=== PATIENT | male | born 1945 | race Caucasian/White ===

== ENCOUNTER 2017-12-20 07:16 | Outpatient (CLI) | payer MEDICARE, OTHER | END 2017-12-20 07:17 | disposition home or self-care (01) | LOC: BICULT 07:16 | PROVIDERS: ATTEND Family Medicine | DX: Z13.6 Encounter for screening for cardiovascular disorders (principal); Z00.00 Encounter for general adult medical examination without abnormal findings | CPT/HCPCS: 76775 ==

== ENCOUNTER 2018-01-08 10:24 | Outpatient (CLI) | payer MEDICARE, OTHER | END 2018-01-08 10:25 | disposition home or self-care (01) | LOC: BICRAD 10:24 | PROVIDERS: ATTEND Family Medicine | DX: M79.645 Pain in left finger(s) (principal); M19.032 Primary osteoarthritis, left wrist ==

== ENCOUNTER 2018-03-18 21:43 | Inpatient (IN) | payer MEDICARE, OTHER ==
[~2018-03-18 21:43] MED LIST: ISOVUE-370 76%-LOCM 1 ML ONE
[2018-03-18 23:25] LABS: #Basophils 0.1 thou/uL (0.0-0.2); #Eosinphils 0.3 thou/uL (0.0-0.7); #Lymphocytes 2.4 thou/uL (1.20-3.40); #Neutrophils 3.1 thou/uL (1.40-6.50); %Eosinophils 4.6 % (0.0-10.0); %Lymphocytes 35.2 % (21.0-51.0); %Monocytes 14.5 % (0.0-10.0); %Neutrophils 44.7 % (42.0-75.0); Hemoglobin 13.2 g/dL (14.0-18.0); Mean Corpuscular HGB CONC 34.5 g/dL (32.0-36.0); Mean Corpuscular Hemoglobin 26.6 pg (27.0-31.0); Mean Corpuscular Volume 77.2 fL (78.0-98.0); Mean Platelet Volume 6.9 fL (7.4-10.4); Platelet Count 199 thou/uL (130-400); RBC Distribution Width 14.7 % (11.5-14.5); Red Blood Cell (RBC) Count 4.94 mill/uL (4.70-6.10); White Blood Cell (WBC) Count 6.9 thou/uL (4.8-10.8)
[2018-03-18 23:42] LABS: Bilirubin Negative (Negative); Blood, Urine Negative (Negative); Clarity CLEAR (Clear); Glucose, Urine (Dipstick) Negative (Negative); Leukocyte Negative (Negative); Nitrite Negative (Negative); Protein, Urine (Dipstick) Negative (Neg-Trace); Specific Gravity, Urine 1.004 (1.002-1.036); Urobilinogen 0.2 mg/dL (0.2-1.0); pH, Urine 6.5 (5.0-9.0)
[2018-03-18 23:51] LABS: CKMB 6.4 ng/mL (0-6.6); Troponin I Less than 0.010 ng/mL (< 0.028)
--- NOTE | 2018-03-18 23:52 | RAD ---
CHEST ONE VIEW: 03/18/18 HISTORY: Altered mental status. Chest pain. COMPARISON: Chest radiograph 2010. FINDINGS: Heart size is mildly enlarged. Mild dilatation of the pulmonary arteries. Multiple midline median kemi rnotomy wires. Scarring of both lung bases as well as lung apices. IMPRESSION: Chronic changes. No acute intrathoracic abnormality. POS: [facility]
[2018-03-18 23:55] LABS: ALT (SGPT) 18 U/L (8-55); AST (SGOT) 20 U/L (5-34); Albumin 4.1 g/dL (3.4-4.8); Alkaline Phosphatase 42 U/L (40-150); Anion Gap 11 mmol/L (10-20); BUN (Urea Nitrogen) 18 mg/dL (8.4-25.7); Bilirubin, Total 0.6 mg/dL (0.2-1.2); CK (CPK) 118 U/L (30-200); Calc. Creatinine Clearance 0 mL/min (70-130); Calcium 9.6 mg/dL (7.8-10.44); Carbon Dioxide 27 mmol/L (23-31); Chloride 100 mmol/L (98-107); Estimated GFR-MDRD 67; Globulin 2.5 g/dL (2.4-3.5); Glucose 85 mg/dL (83-110); Lipase 31 U/L (8-78); Potassium 4.1 mmol/L (3.5-5.1); Protein, Total 6.6 g/dL (5.8-8.1); Sodium 134 mmol/L (136-145)
--- NOTE | 2018-03-19 00:13 | CT ---
CT BRAIN WITHOUT CONTRAST: 03/18/18 HISTORY: Stroke activation. Right side numbness started one hour prior to arrival. COMPARISON: CT brain 08/29/13. FINDINGS: No acute territorial infarct or hemorrhage. No midline shift or mass effect. Calcifications of the fa lx and tentorium. Globes are normal. IMPRESSION: No acute intracranial abnormality. Code CR POS: [facility]
[2018-03-19 01:33] LABS: Free T4 (Free Thyroxine) 1.36 ng/dL (0.70-1.48)
[2018-03-19 03:12] VITALS: BMI 32.1
--- NOTE | 2018-03-19 07:05 | CT ---
CT ANGIOGRAM HEAD WITH CONTRAST WITH CT ANGIOGRAM PERFUSION: COMPARISON: CT brain from the same day. TECHNIQUE: CT angiogram of the head and neck were performed with the intravenous administration of contrast, wit h 3D rendering provided. Perfusion was performed. FINDINGS: The lung apices are clear. There appear to be multiple surgical clips along the neck. Cervical spine alignment is normal. Left vertebral artery is dominant. The origins of both vertebral arteries are patent. There is appr oximately 30% narrowing of the proximal left vertebral artery. The proximal right vertebral artery o rigin also has approximately 30% narrowing. Bilateral common carotid arteries are patent. Internal carotid arteries are patent. The [place] is patent. Mean transit time, cerebral blood flow, and cerebral blood volume are all normal. IMPRESSION: 1. Less than 50% narrowing of the proximal origins of the vertebral arteries. 2. No evidence for altered intracranial perfusion. CODE CR (DR. ABBOTT) POS: [facility]
[2018-03-19] MEDS ORDERED: Aspirin 325 MG TAB PO SCH (09:00)
--- NOTE | 2018-03-19 10:19 | ULT ---
BILATERAL CAROTID DUPLEX ULTRASOUND: HISTORY: CVA. TECHNIQUE: Proctor-scale ultrasound with color-flow and spectral Doppler imaging of the extracranial carotid artery system was performed bilaterally. FINDINGS: There is plaque formation on either side. The peak systolic velocity in the right ICA measures 77 cm per second with an end diastolic velocity of 18 cm per second and a systolic ratio of 0.95. The peak systolic velocity in the left ICA measures 78 cm per second with an end diastolic velocity o f 13 cm per second and a systolic ratio of 0.85. Flow in both vertebral arteries remains antegrade. IMPRESSION: No evidence of hemodynamically significant stenosis in either internal carotid artery. POS: [facility]
--- NOTE | 2018-03-19 10:25 | MRI ---
MRI BRAIN WITHOUT CONTRAST: Date: 03/19/18 HISTORY: Right-sided numbness. FINDINGS: Correlation is made with the CT scan from previous night. FINDINGS: No restricted diffusion is seen. No evidence of infarct, hemorrhage, midline shift, or abnormal extra -axial fluid collections are noted. The ventricular size is appropriate and the basilar cisterns are patent. The visualized paranasal sinuses and mastoid air cells are well aerated. No tonsillar herniat ion is seen. IMPRESSION: No evidence of acute intracranial process. POS: [facility]
[2018-03-19] MEDS ORDERED: Acetaminophen 325 MG TAB PO SCH (11:30)
[2018-03-19] MEDS ORDERED: traMADol HCl 50 MG TAB PO SCH (11:30)
[2018-03-19] MEDS ORDERED: Guaifenesin DM 100-10/5 ML UDCUP PO PRN (11:50)
[2018-03-19] MEDS ORDERED: Acetaminophen 325 MG TAB PO PRN (11:50)
[2018-03-19] MEDS ORDERED: Carvedilol 6.25 MG TAB PO SCH (12:30)
[2018-03-19] MEDS ORDERED: Calcium Carbonate 500 MG ChewTAB PO SCH (13:00)
[2018-03-19] MEDS ORDERED: OMEGA ACID ETHYL ESTERS PO SCH (13:00)
[2018-03-19] MEDS ORDERED: CALCIUM CARBONATE 500 MG PO SCH (13:00)
--- NOTE | 2018-03-19 13:53 | HP ---
REASON FOR ADMISSION: TIA. HISTORY OF PRESENTING ILLNESS: The patient gives history of having right-sided numbness which starte d around 8:30 p.m. yesterday. This happened soon after he got out of the shower. This numbness and tingling started in the right hand and forearm which gradually spread to his entire right upper extre mity going up to his scalp on the right side and to the lower extremities on the right side only. Brandon shirley has not had any relief from it and it is the same since yesterday evening. No complaints of ch est pain, palpitation, PND or orthopnea. Has no complaints of fever, neck pain, cough, or expectorat ion. No prior history of stroke. The patient states he has inner ear problem with balance issue whi ch is not something new per patient. He is able to move all 4 extremities. PAST MEDICAL AND SURGICAL HISTORY: History of coronary artery disease, CABG for 4-vessel disease don e on 01/25/2017 at [facility] by Dr. Lan, dyslipidemia, hypertension, hypothyr oidism, history of prostate cancer, diabetes mellitus type 2, inner ear problem with balance issues, inguinal hernia repair, circumcision, lower back fusion surgery, thyroidectomy, parathyroidectomy, ch olecystectomy, appendectomy, two umbilical hernia repairs, osteoporosis. CURRENT MEDICATIONS: Ultracet p.r.n., Lovaza 500 mg p.o. 4 times daily, potassium gluconate testoste arabella shots once a week, Colace 200 mg daily, carvedilol 12.5 mg twice daily, Levoxyl 200 mcg q.a.m., calcium 500 mg 4 times daily, melatonin 5 mg p.o. at bedtime, Advair Diskus p.r.n., aspirin 81 mg p.o . daily, Benadryl 25 mg p.o. at bedtime, calcitriol 0.5 mcg p.o. daily, magnesium 500 mg p.o. daily, Naprosyn 220 mg p.o. q.a.m., vitamin B12 2500 mcg sublingual daily, Zanaflex 4 mg p.o. q.a.m., vitami n C 1000 mg p.o. daily. ALLERGIES: No known drug allergies, but patient generally feels intolerant to narcotics with severe nausea and hallucinations when he takes them. PERSONAL HISTORY: Does not abuse alcohol or drugs. No history of smoking. Lives with his . FAMILY HISTORY: Mother at the age of 85 years. She has had history of hypertension and cardiac valvular issue. Father at the age of 84 years and he has had prior CABG and 3 strokes. CODE STATUS: FULL. REVIEW OF SYSTEMS: The following complete review of systems was negative, unless otherwise mentioned in the HPI or below: Constitutional: Weight loss or gain, ability to conduct usual activities. Skin: Rash, itching. Eyes: Double vision, pain. ENT/Mouth: Nose bleeding, neck stiffness, pain, tenderness. Cardiovascular: Palpitations, dyspnea on exertion, orthopnea. Respiratory: Shortness of breath, wheezing, cough, hemoptysis, fever or night sweats. Gastrointestinal: Poor appetite, abdominal pain, heartburn, nausea, vomiting, constipation, or diarr hea. Genitourinary: Urgency, frequency, dysuria, nocturia. Musculoskeletal: Pain, swelling. Neurologic/Psychiatric: Anxiety, depression. Allergy/Immunologic: Skin rash, bleeding tendency. PHYSICAL EXAMINATION: GENERAL: Patient is a 73-year-old male who is currently not in any acute distress. VITAL SIGNS: Blood pressure 156/90, pulse 76 per minute, respiratory rate 18 per minute, temperature 98.4 degrees Fahrenheit, saturating 96% on room air. NECK: Supple, no elevated JVD. EYES: Extraocular muscles intact. Pupils reacting to light. ORAL CAVITY: Mucous membranes are moist. No exudates or congestion. CARDIOVASCULAR SYSTEM: S1, S2 heard. Regular rhythm. RESPIRATORY SYSTEM: Air entry 2+ bilateral. No rales or rhonchi. ABDOMEN: Soft, bowel sounds heard. No tenderness, rigidity or guarding. EXTREMITIES: No peripheral edema or calf tenderness. VASCULAR SYSTEM: Peripheral pulses 1+ bilateral, no ischemic ulcerations or gangrene. CENTRAL NERVOUS SYSTEM: No gross motor deficits noted. Patient appears to have paraesthesias in rig ht upper and lower extremities and to the right half of his face and scalp. PSYCHIATRIC SYSTEM: Patient's mood is euthymic. No hallucinations or delusions. LABORATORY DATA AND IMAGING DATA: White count of 6, hemoglobin and hematocrit 13 and 38, platelet co unt 199 with 44% neutrophils, MCV is 77. Sodium 134, serum bicarbonate 27, BUN 18, creatinine 1.0. Serum glucose 85, calcium levels are 9.6. Liver enzymes within normal limits. First set of cardiac enzymes are negative. BNP is 14, albumin 4.1, lipase is 31. TSH done at 11:00 p.m is 0.04 with norm al free T3 and free T4 again done at 12:00 midnight. UA shows no signs of infection. CT brain done showed no acute intracranial abnormalities. CT angiogram of the head done showed less than 50% narro wing of the proximal origin of the vertebral arteries, no evidence of altered intracranial perfusion seen. Carotid Doppler done showed no hemodynamically significant stenosis seen. MRI brain without c ontrast showed no evidence of acute intracranial process. EKG done showed normal sinus rhythm at 64 beats per minute. There is old Q-wave seen in lead II, III, AVF and poor R-wave progression. CLINICAL IMPRESSION AND PLAN: The patient is admitted to stroke unit for right-sided paraesthesias. He has had a complete stroke workup done which has been negative so far. The patient still has para esthesias in the right half of his body including face and scalp. We will obtain Neurology consultat [facility]. He also has history of prior parathyroidectomy and slightly higher end of calcium level at 9.6 mg with normal albumin at 4.1. He will be gently hydrated with normal saline at 70 mL per hour. We will continue all his home medications as before. We will await Neurology opinion. He will be on a full dose aspirin and Lipitor 40 mg p.o. at bedtime. The patient's blood pressure has been trending in the higher end and we will trend the same during his stay here. We will add lisinopril to his nathaly e medication regimen for now. We will continue to closely monitor him during his stay here.
[2018-03-19] MEDS ORDERED: Lisinopril 5 MG TAB PO SCH ×2 (14:00→21:00)
[2018-03-19] MEDS ORDERED: HumaLOG 300 UNITS/3 ML VIAL SC PRN (17:45)
[2018-03-19] MEDS ORDERED: Dextrose 5% in Water 1,000 ML IV PRN (17:45)
[2018-03-19] MEDS ORDERED: Dextrose 50% Abboject 50 ML SYRINGE IVP PRN (17:45)
[2018-03-19] MEDS ORDERED: Sodium Chloride 0.9% 10 ML ONE (17:53)
[2018-03-19] MEDS ORDERED: metFORMIN 500 MG TAB PO SCH (18:00)
[2018-03-19] MEDS: Carvedilol 6.25 MG TAB PO SCH (18:44)
[2018-03-19] MEDS ORDERED: Docusate 100 MG CAP PO SCH (21:00)
[2018-03-19] MEDS ORDERED: POTASSIUM GLUCONATE 600 MG PO SCH ×2 (21:00)
[2018-03-19] MEDS ORDERED: Melatonin 3 MG TAB PO SCH (21:00)
[2018-03-19] MEDS ORDERED: diphenhydrAMINE 25 MG CAP PO SCH (21:00)
[2018-03-19] MEDS ORDERED: Atorvastatin Calcium 40 MG TAB PO SCH (21:00)
[2018-03-19] MEDS ORDERED: TRAMADOL HCL PO SCH (21:00)
[2018-03-19] MEDS ORDERED: ACETAMINOPHEN PO SCH (21:00)
[2018-03-19] MEDS: Famotidine 20 MG TAB PO SCH (21:04)
[2018-03-19] MEDS: Docusate 100 MG CAP PO SCH (21:04)
--- NOTE | 2018-03-19 23:41 | CON ---
DATE OF CONSULTATION: 03/19/2018 REFERRING PHYSICIAN: James Wagner M.D. REASON FOR CONSULTATION: Right-sided numbness. HISTORY OF PRESENT ILLNESS: Mr. Downey is a pleasant 73-year-old male who has been consulted for evaluation of right-sided numbness. Patient reports that yesterday around 8 to 8:30 p.m. he had taken shower and after he came out of the shower and drying himself, he noticed numbness on the right hand. By the time, he was done drying himself, he noticed numbness that spread to his entire right side of the body from head to toes. He also noticed some difficulty with balance at that time. The symptoms were not improving and he decided to present to the [facility]. He reports that since then he continues to have the numbness on the right side. He also feels that he is not able to have fine motor skills on his right hand and tends to drop objects like a phone or utensils. He denies any vision changes, dysarthria, dysphagia, facial droop, weakness in upper and lower extremities, lightheadedness or dizziness. He does complain of having mild headache that is holocranial and dull in quality. He reports that over the past few weeks, he has been having increasing difficulty with his gait and balance. He also complains of feeling very fatigued and tired and has no energy to perform activities that he is to perform easily. He states that he has a history of hypothyroidism and hypoparathyroidism for which he takes replacement therapy and whenever his thyroid hormone is uncontrolled, he tends to get similar symptoms; however, these recent episodes are not due to changes in his thyroid or parathyroid hormone levels. PAST MEDICAL HISTORY: Significant for hypertension, coronary artery disease, dyslipidemia, hypothyroidism, diabetes, history of prostate cancer, lumbar spinal stenosis. PAST SURGICAL HISTORY: Significant for CABG, inguinal hernia repair, back surgery, thyroidectomy, parathyroidectomy, cholecystectomy, appendectomy, two umbilical hernia repairs. SOCIAL HISTORY: He denies smoking, alcohol use, or illicit drug use. FAMILY HISTORY: Noncontributory. CURRENT MEDICATIONS: Please review MAR. ALLERGIES: Include CALCIUM CHANNEL BLOCKING AGENTS, HYDROCODONE and OXYCODONE. REVIEW OF SYSTEMS: As mentioned in the HPI, otherwise negative. PHYSICAL EXAMINATION: VITAL SIGNS: Blood pressure 142/71, pulse is 73, temperature of 97.3, respirations of 16, O2 sats 96% on room air. GENERAL: Well-developed, well-nourished male sitting in chair in no apparent distress. RESPIRATORY: Clear to auscultation bilaterally. CARDIOVASCULAR: Regular rate and rhythm. NEUROLOGIC: Mental status: The patient is awake, alert, oriented x3. Speech and language: Fluent speech. Cranial nerves: Pupils are 3 mm and reactive. Visual travis are intact. External muscles are intact. No nystagmus. Face is symmetric. Tongue and uvula midline. Motor exam showed normal tone and bulk with a 5/5 strength in both upper extremities. Sensory: Sensation is intact and symmetric. Deep tendon reflexes 2+ of flexion with responses flexion bilaterally. Coordination intact to [id number] tapping bilaterally. LABORATORY DATA: Reviewed, which included CBC, CMP, TSH, urinalysis, which is significant for hemoglobin 13.2, hematocrit 38.2. Sodium 134. TSH is 0.0477, otherwise unremarkable. IMAGING STUDIES: MRI brain without contrast was reviewed, which showed no acute intracranial abnormality. IMPRESSION: 1. Right-sided numbness. 2. Malignant hypertension. ASSESSMENT AND PLAN: Mr. Downey is a pleasant 73-year-old male who presented with acute onset of right-sided numbness. I have reviewed his MRI brain, which does not show any acute intracranial abnormality. In my opinion, his symptoms could be related to hypertensive urgency. This could also be secondary to thyroid abnormality. He may have underlying vitamin B12, folic acid deficiency that can also contribute to similar symptoms. I will obtain B12 , folic acid, B1 for further evaluation. I have advised him to follow up with his primary care physician who can readjust his antihypertensive medications to control his blood pressure. Continue supportive care. Thank you for consultation. MIYA
[2018-03-20 05:51] LABS: #Eosinphils 0.6 thou/uL (0.0-0.7); #Lymphocytes 2.4 thou/uL (1.20-3.40); #Monocytes 0.9 thou/uL (0.11-0.59); #Neutrophils 3.3 thou/uL (1.40-6.50); %Basophils 0.5 % (0.0-1.0); %Eosinophils 7.8 % (0.0-10.0); %Lymphocytes 33.1 % (21.0-51.0); %Monocytes 12.9 % (0.0-10.0); %Neutrophils 45.7 % (42.0-75.0); Hemoglobin 13.5 g/dL (14.0-18.0); Mean Corpuscular Hemoglobin 26.4 pg (27.0-31.0); Mean Corpuscular Volume 77.5 fL (78.0-98.0); Platelet Count 193 thou/uL (130-400); RBC Distribution Width 14.8 % (11.5-14.5); Red Blood Cell (RBC) Count 5.12 mill/uL (4.70-6.10); White Blood Cell (WBC) Count 7.3 thou/uL (4.8-10.8)
[2018-03-20] MEDS ORDERED: Levothyroxine 175 MCG TAB PO SCH (06:00)
[2018-03-20 06:02] LABS: Anion Gap 11 mmol/L (10-20); BUN (Urea Nitrogen) 17 mg/dL (8.4-25.7); Calc. Creatinine Clearance 87 mL/min (70-130); Calcium 9.2 mg/dL (7.8-10.44); Carbon Dioxide 26 mmol/L (23-31); Chloride 101 mmol/L (98-107); Cholesterol 168 mg/dl (< 200 Desired); Estimated GFR-MDRD 70; Glucose 97 mg/dL (83-110); HDL Cholesterol 28 mg/dL (>60 Neg Risk); LDL Cholesterol, Calculated 108 mg/dL; Potassium 3.8 mmol/L (3.5-5.1); Sodium 134 mmol/L (136-145); Triglycerides 160 mg/dL (Less than 150)
[2018-03-20 07:37] VITALS: TEMP 97.5
[2018-03-20] MEDS ORDERED: metFORMIN 500 MG TAB PO SCH (08:00)
[2018-03-20] MEDS ORDERED: Potassium Chloride 8 MEQ TAB PO SCH (08:00)
[2018-03-20] MEDS: Carvedilol 6.25 MG TAB PO SCH (08:51)
[2018-03-20] MEDS: Famotidine 20 MG TAB PO SCH (08:57)
[2018-03-20] MEDS: Docusate 100 MG CAP PO SCH (08:57)
[2018-03-20 08:59] VITALS: BP 155/70
[2018-03-20] MEDS ORDERED: Cyanocobalamin (Vitamin B-12) 1,000 MCG TAB PO SCH (09:00)
[2018-03-20] MEDS ORDERED: Acetaminophen 325 MG TAB PO SCH (09:00)
[2018-03-20] MEDS ORDERED: Naproxen 500 MG TAB PO SCH (09:00)
[2018-03-20] MEDS ORDERED: Fish Oil 1,000 MG CAP PO SCH (09:00)
[2018-03-20] MEDS ORDERED: Aspirin 325 mg Enteric Coated Tablet PO SCH (09:00)
[2018-03-20] MEDS ORDERED: Enoxaparin Sodium 40 MG/0.4 ML SYRINGE SC SCH (09:00)
[2018-03-20] MEDS ORDERED: Calcitriol 0.25 MCG CAP PO SCH (09:00)
[2018-03-20] MEDS ORDERED: tiZANidine HCl 4 MG TAB PO SCH (09:00)
[2018-03-20] MEDS ORDERED: CYANOCOBALAMIN 2500 MCG SL SCH (09:00)
[2018-03-20] MEDS ORDERED: Magnesium Oxide 250 MG TAB PO SCH (09:00)
[2018-03-20] MEDS ORDERED: NAPROXEN SODIUM 220 MG PO SCH (09:00)
[2018-03-20] MEDS ORDERED: traMADol HCl 50 MG TAB PO SCH (09:00)
[2018-03-20] MEDS ORDERED: Losartan 25 MG TAB PO SCH (09:00)
--- NOTE | 2018-03-20 10:27 | PDOC.PN ---
- Subjective Encounter Start Date: 03/20/18 Encounter Start Time: 08:15 Subjective: right sided parasthesias are resolving -: is amb in room, no specific limb weakness - Objective Resuscitation Status: Resuscitation Status FULL:Full Resuscitation MAR Reviewed: Yes Vital Signs & Weight: Vital Signs (12 hours) Temp Pulse Resp BP BP Pulse Ox 03/20/18 08:51 155/70 H 03/20/18 08:50 97.5 F L 83 18 03/20/18 07:36 97.5 F L 83 18 126/72 96 03/20/18 04:00 98.5 F 67 18 115/56 L 94 L 03/20/18 00:00 97.7 F 79 18 133/61 96 Weight Weight 210 lb 14.4 oz I&O: 03/19/18 03/20/18 03/21/18 06:59 06:59 06:59 Intake Total 180 2300 Balance 180 2300 Result Diagrams: 03/20/18 05:28 03/20/18 05:28 Additional Labs: Accuchecks 03/20/18 03/19/18 03/19/18 06:02 20:31 16:59 POC Glucose 99 90 97 03/19/18 10:52 POC Glucose 152 H Phys Exam - Physical Examination HEENT: PERRLA, moist MMs Neck: no JVD, supple Respiratory: no wheezing, no rales Cardiovascular: RRR, no significant murmur Gastrointestinal: soft, non-tender, positive bowel sounds Musculoskeletal: no edema, pulses present Neurological: non-focal, moves all 4 limbs Psychiatric: normal affect, A&O x 3 Dx/Plan (1) TIA (transient ischemic attack) Code(s): G45.9 - TRANSIENT CEREBRAL ISCHEMIC ATTACK, UNSPECIFIED Status: Suspected (2) HTN (hypertension) Code(s): I10 - ESSENTIAL (PRIMARY) HYPERTENSION Status: Chronic Qualifiers: Hypertension type: essential hypertension Qualified Code(s): I10 - Essential (primary) hypertension (3) Dyslipidemia Code(s): E78.5 - HYPERLIPIDEMIA, UNSPECIFIED Status: Chronic (4) CAD (coronary artery disease) Code(s): I25.10 - ATHSCL HEART DISEASE OF [place] CORONARY ARTERY W/O ANG PCTRS Status: Chronic Qualifiers: Coronary Disease-Associated Artery/Lesion type: bypass graft [place] vs. transplanted heart: [place] heart Associated angina: without angina Qualified Code(s): I25.810 - Atherosclerosis of coronary artery bypass graft(s) without angina pectoris (5) Hypoparathyroidism Code(s): E20.9 - HYPOPARATHYROIDISM, UNSPECIFIED Status: Chronic Qualifiers: Hypoparathyroidism type: unspecified Qualified Code(s): E20.9 - Hypoparathyroidism, unspecified Comment: sec to parathyroid surgery (6) Osteoporosis Code(s): M81.0 - AGE-RELATED OSTEOPOROSIS W/O CURRENT PATHOLOGICAL FRACTURE Status: Chronic Comment: sec to parathyroid surgery - Plan hemo/neuro stable -: dc pt home -: to f/u with in 1-2 weeks * .
--- NOTE | 2018-03-20 14:35 | DIS ---
DATE OF ADMISSION: 03/18/2018 DATE OF DISCHARGE: 03/20/2018 DISCHARGE DISPOSITION: To home. PRIMARY DISCHARGE DIAGNOSES: 1. Initial suspicion for transient ischemic attack, resolved. 2. Right-sided paraesthesias including scalp area of unclear etiology, resolving. SECONDARY DISCHARGE DIAGNOSES: Hypertension, dyslipidemia, coronary artery disease, hypoparathyroidi sm, osteoporosis. PROCEDURES DONE DURING HOSPITALIZATION: Patient has had CT brain without contrast showed no acute in tracranial abnormality. CT angiogram of the brain showed less than 50% narrowing of the proximal [place] of vertebral arteries. No evidence of altered intracranial perfusion was seen. MRI brain showed no acute intracranial process. Carotid ultrasound done showed no hemodynamically significant stenos is. Echo with 2D Doppler showed an EF of 55% to 60%. H&H 13 and 39, platelet count 193, MCV was 77, total cholesterol 168, triglycerides 160, LDL 108, HDL 28. TSH was 0.04, which was a midnight sampl e. Free T3, free T4 were within normal limits. Serum calcium levels were 9.6, albumin 4.1. DISCHARGE MEDICATIONS: Patient to continue all his home medications as before, albuterol inhaler p.r .n., vitamin C 500 mg p.o. daily, aspirin 81 mg p.o. daily, calcitriol 0.5 mcg p.o. daily, calcium 50 0 mg p.o. 4 times daily, Coreg 12.5 mg p.o. twice daily, vitamin B12 at 2500 mcg sublingual daily, Be nadryl 25 mg p.o. at bedtime, Advair Diskus inhaler daily, levothyroxine 200 mcg p.o. daily, losartan 100 mg p.o. daily, magnesium oxide 500 mg p.o. daily, melatonin 5 mg p.o. q.p.m., metformin 1000 mg p.o. twice daily, Lovaza 500 mg p.o. 4 times daily, potassium gluconate 600 mg p.o. twice daily, test osterone 50 mg IM once weekly, Zanaflex 4 mg p.o. at bedtime, and Ultracet 1 tab p.o. twice daily. ALLERGIES: CALCIUM CHANNEL BLOCKERS, HYDROCODONE, and OXYCODONE. INPATIENT CONSULTS: Dr. Audrey Hagan for Neurology. DISCHARGE PLAN: The patient to follow up with Dr. Kirk his design engineering intern in 1-[address] [facility] physician in 1 week. BRIEF COURSE DURING HOSPITALIZATION: The patient initially came to ER with complaints of right-sided numbness, which was present on his scalp, right upper and right lower extremities as well. This was present on his right face too. In view of this history, he was placed under observation on the [facility] unit. The patient has had complete neurologic workup done, which has been negative for any acute CVA. His paresthesias are currently resolving. He is ambulating in the room and hallway. The patie nt has hypoparathyroidism and hypothyroidism as well. He needs follow up with his design engineering intern in 1 week. At present, there is no clear etiology for his entire right-sided paraesthesias, which librado kumar is resolving at present. Please see a [id number] documentation for the day of discharge on [facility].
--- NOTE | 2018-03-22 10:53 | EKG ---
Test Reason : Blood Pressure : / mmHG Vent. Rate : 064 BPM Atrial Rate : 064 BPM P-R Int : 180 ms QRS Dur : 110 ms QT Int : 404 ms P-R-T Axes : 029 -11 029 degrees QTc Int : 416 ms Normal sinus rhythm Minimal voltage criteria for LVH, may be normal variant Inferior infarct , age undetermined Cannot rule out Anterior infarct , age undetermined Abnormal ECG Confirmed by SCAR FARAH, JAMES ([id number]), associate editor CHARITY JETER ([id number]) on 03/22/2018 10:53:00 AM Referred By: Confirmed By:JAMES ABBOTT MD
== END 2018-03-20 09:43 | disposition home or self-care (01) | DRG 69 ==
LOC: ERS 21:43 → 2SE 03-19 00:10 → OBSVTOIN 03-19 00:42
PROVIDERS: ADMIT Internal Medicine; ATTEND Internal Medicine
DX: G45.9 Transient cerebral ischemic attack, unspecified (principal); I25.810 Atherosclerosis of coronary artery bypass graft(s) without angina pectoris; I10 Essential (primary) hypertension; E78.5 Hyperlipidemia, unspecified; E20.9 Hypoparathyroidism, unspecified; M81.0 Age-related osteoporosis without current pathological fracture; Z91.81 History of falling; R20.2 Paresthesia of skin; E03.9 Hypothyroidism, unspecified; Z85.46 Personal history of malignant neoplasm of prostate; E11.9 Type 2 diabetes mellitus without complications; I25.2 Old myocardial infarction; Z95.1 Presence of aortocoronary bypass graft; R20.0 Anesthesia of skin
CPT/HCPCS: 0042T; 36415; 36416; 70450; 70496; 70551; 71045; 80048; 80053; 80061; 81003; 82553; 83690; 83880; 84439; 84443; 84481; 84484; 85025; 93005; 93306; 93880; A4216; G8978-GP-CJ; G8979-GP-CJ; G8980-GP-CJ; G8996-GN-CH; G8997-GN-CH; J1650

== ENCOUNTER 2019-03-02 08:34 | Outpatient (CLI) | payer MEDICARE, OTHER ==
--- NOTE | 2019-03-02 10:51 | BD ---
DEXA BONE DENSITY STUDY: Date: 03/02/19 COMPARISON: None. HISTORY: 73-year-old male with osteopenia. FINDINGS: BMD (g/cm2) Left Femoral Neck 0.771 T-Score: -1.2 Total Proximal Left Femur 1.069 T-Score: 0.2 Right Femoral Neck 0.755 T-Score: -1.3 Total Proximal Right Femur 1.055 T-Score: 0.1 IMPRESSION: Osteopenia. This patient has a 10 year WHO fracture risk for a major osteoporotic fracture of 8.8% an d for a hip fracture of 2.9%. POS: [facility]
== END 2019-03-02 08:35 | disposition home or self-care (01) ==
LOC: BICMAMMO 08:34
PROVIDERS: ATTEND Family Medicine
DX: M81.0 Age-related osteoporosis without current pathological fracture (principal); M85.851 Other specified disorders of bone density and structure, right thigh; M85.852 Other specified disorders of bone density and structure, left thigh
CPT/HCPCS: 77080

== ENCOUNTER 2019-05-01 10:02 | Outpatient (CLI) | payer MEDICARE, OTHER ==
--- NOTE | 2019-05-01 12:17 | RAD ---
2 VIEWS LUMBOSACRAL SPINE: Date: 05/01/19 COMPARISON: None. HISTORY: Low back pain. FINDINGS: 2 views of the lumbosacral spine show the patient to be status post fusion of L5 and S1 from an anter ior and posterior approach. Vertebral bodies demonstrate normal height and alignment without acute fr acture or subluxation. There is wedging of the T11 and T12 vertebral bodies which may be from chronic degenerative changes. Posterior facet arthrosis is seen in the lower lumbosacral spine. Laminectomie s have been performed at L5. IMPRESSION: Degenerative changes and postsurgical changes of the lumbar spine as above. POS: [facility]
--- NOTE | 2019-05-01 12:23 | RAD ---
3 VIEWS CERVICAL SPINE: Date: 05/01/19 COMPARISON: None. HISTORY: Cervicalgia. FINDINGS: 3 views of the cervical spine show normal height and alignment of the vertebral bodies and interverte bral discs without fracture or subluxation. Mild degenerative changes are seen throughout the cervica l spine. No prevertebral soft tissue swelling is seen. IMPRESSION: Mild degenerative changes of the cervical spine without acute osseous abnormality. POS: [facility]
--- NOTE | 2019-05-01 13:46 | RAD ---
SACROILIAC JOINT RADIOGRAPHS 3 VIEWS: DATE: 05/01/2019. PROVIDED CLINICAL HISTORY: Sciatica. FINDINGS: Degenerative changes are seen involving the sacroiliac joints to a mild degree. There are no radiogr aphic findings to suggest sacroiliitis. Postoperative changes involving the lower lumbar spine are p artially visualized. No evidence for a fracture or other acute osseous abnormality. IMPRESSION: Bilateral sacroiliac degenerative change. POS: [facility]
== END 2019-05-01 10:03 | disposition home or self-care (01) ==
LOC: BICRAD 10:02
PROVIDERS: ATTEND Family Medicine
DX: M54.42 Lumbago with sciatica, left side (principal); M54.41 Lumbago with sciatica, right side; M54.2 Cervicalgia; M47.898 Other spondylosis, sacral and sacrococcygeal region; M47.816 Spondylosis without myelopathy or radiculopathy, lumbar region; M47.812 Spondylosis without myelopathy or radiculopathy, cervical region; Z98.890 Other specified postprocedural states
CPT/HCPCS: 72040; 72100; 72202

== ENCOUNTER 2019-07-13 09:52 | Outpatient (CLI) | payer MEDICARE, OTHER ==
--- NOTE | 2019-07-13 11:05 | MRI ---
MRI Lumbar Spine Noncontrast: HISTORY: Left lumbar radiculopathy. Patient claims of low back pain with pain radiating to left hip. Symptoms present for 6 months. History of prior lumbar surgery in 2002. COMPARISON: None FINDINGS: A 2.6 cm T2 hyperintense lesion is seen in the inferior pole right kidney demonstrating corresponding decreased T1-weighted signal intensity, and this likely represents a renal cyst. Limited visualized retroperitoneal structures otherwise demonstrate a grossly normal MRI appearance. Conus medullaris is normal in morphology and terminates at the L1-2 level. There are postsurgical changes at the lumbosacral junction with metallic susceptibility artifact seen anteriorly as well as posteriorly likely related to anterior and posterior fusion. The metallic susceptibility artifact is likely related to bipedicular screws with posterior rods with anterior cherri te and screws. T12-L1: There is a broad-based disc osteophyte complex resulting in mild effacement of the ventral vasquez barachnoid space. Neural foramina are patent. L1-2: There is a mild disc osteophyte complex with minimal mass effect on the ventral subarachnoid sp abraham. Neural foramina are patent. L2-3: Minimal disc osteophyte complex is present. Central spinal canal and neural foramina are patent . L3-4: There is a minimal disc osteophyte complex without significant narrowing of the central spinal canal. Mild facet degenerative changes are present. Minimal bilateral neural foraminal narrowing is noted. L4-5: There is a mild disc osteophyte complex and facet degenerative changes. There is mild effacemen t of the lateral aspect of the thecal sac at this level due to the facet hypertrophic changes. There is mild bilateral neural foraminal narrowing. L5-S1: Postsurgical changes are present at this level as noted by metallic susceptibility artifact li he secondary to anterior as well as posterior fusion. Mild grade 1 anterolisthesis of L5 on S1 is present. Central spinal canal is patent. Minimal bilateral neural foraminal narrowing is noted. IMPRESSION: 1. Postsurgical changes lumbosacral junction with mild degenerative changes in the spine as described above. There is no significant central canal or neural foraminal narrowing noted. Greatest degree of neural foraminal narrowing is seen at the L4-5 level which is mild in severity. 2. Probable right renal cyst.
== END 2019-07-13 09:53 | disposition home or self-care (01) ==
LOC: BICMRI 09:52
PROVIDERS: ATTEND Family Medicine
DX: M47.26 Other spondylosis with radiculopathy, lumbar region (principal); M53.3 Sacrococcygeal disorders, not elsewhere classified; M48.061 Spinal stenosis, lumbar region without neurogenic claudication; Z98.890 Other specified postprocedural states
CPT/HCPCS: 72148

== ENCOUNTER 2022-11-30 13:51 | Outpatient (CLI) | payer MEDICARE, OTHER | END 2022-11-30 13:52 | disposition home or self-care (01) | LOC: TBSIIMAG 13:51 | PROVIDERS: ATTEND Nurse Practitioner Family | DX: M54.16 Radiculopathy, lumbar region (principal); Z98.890 Other specified postprocedural states; M47.816 Spondylosis without myelopathy or radiculopathy, lumbar region | CPT/HCPCS: 72148 ==

== ENCOUNTER 2023-04-09 10:02 | Outpatient (CLI) | payer MEDICARE, OTHER ==
[2023-04-09] MEDS ORDERED: Iopamidol-370 76% 500 ML MDV (1 ML CHARGE) ONE (10:34)
== END 2023-04-09 10:03 | disposition home or self-care (01) ==
LOC: BICCT 10:02
PROVIDERS: ATTEND Nurse Practitioner Family
DX: R10.12 Left upper quadrant pain (principal)
CPT/HCPCS: 74177; 82565; Q9967

== ENCOUNTER 2023-05-21 07:54 | Outpatient (CLI) | payer MEDICARE, OTHER | END 2023-05-21 07:55 | disposition home or self-care (01) | LOC: RAD-FRANK 07:54 | PROVIDERS: ATTEND Nurse Practitioner Family | DX: M25.551 Pain in right hip (principal) ==

== ENCOUNTER 2024-02-12 10:27 | Outpatient (CLI) | payer MEDICARE, OTHER | END 2024-02-12 10:28 | disposition home or self-care (01) | LOC: BICMRI 10:27 | PROVIDERS: ATTEND Specialist | DX: S76.011A Strain of muscle, fascia and tendon of right hip, initial encounter (principal); R60.0 Localized edema; M67.951 Unspecified disorder of synovium and tendon, right thigh ==

== ENCOUNTER 2024-07-08 23:27 | Inpatient (IN) | payer MEDICARE, OTHER ==
[2024-07-08 23:54] LABS: #Basophils 0.03 10x3/uL (0.0-0.2); %Basophils 0.5 % (0.0-1.0); %Eosinophils 4.8 % (0.0-10.0); %Lymphocytes 29.7 % (21.0-51.0); %Monocytes 15.7 % (0.0-10.0); Hematocrit 45.7 % (42.0-52.0); Hemoglobin 15.8 g/dL (14.0-18.0); Mean Corpuscular HGB CONC 34.6 g/dL (32.0-36.0); Mean Platelet Volume 8.7 fL (7.4-10.4); Platelet Count 155 10x3/uL (130-400); RBC Distribution Width 13.4 % (11.5-14.5); Red Blood Cell (RBC) Count 5.44 mill/uL (4.70-6.10)
[2024-07-09 00:08] LABS: INR-International Normal Ratio 0.9; Prothrombin Time 12.1 sec (12.0-14.7)
[2024-07-09 00:09] LABS: PTT 28.7 sec (22.9-36.1)
[2024-07-09 00:17] LABS: ALT (SGPT) 15 U/L (8-55); AST (SGOT) 21 U/L (5-34); Albumin 3.9 g/dL (3.4-4.8); Alkaline Phosphatase 51 U/L (40-110); Anion Gap 13 mmol/L (10-20); BUN (Urea Nitrogen) 17 mg/dL (8.4-25.7); Bilirubin, Total 0.5 mg/dL (0.2-1.2); Calc. Creatinine Clearance 0 mL/min (70-130); Calcium 8.9 mg/dL (7.8-10.44); Carbon Dioxide 22 mmol/L (23-31); Chloride 102 mmol/L (98-107); Estimated GFR 74; Globulin 2.5 g/dL (2.4-3.5); Glucose 106 mg/dL (83-110); Lipase 16 U/L (8-78); Potassium 4.1 mmol/L (3.5-5.1); Protein, Total 6.4 g/dL (5.8-8.1); Sodium 133 mmol/L (136-145)
[2024-07-09 00:24] LABS: Troponin I Less than 0.010 ng/mL (< 0.028)
[2024-07-09] MEDS ORDERED: Acetaminophen 500 MG TAB ONE (00:27)
[2024-07-09] MEDS ORDERED: Prochlorperazine 10 MG/2 ML VIAL ONE ×2 (00:27→00:29)
[2024-07-09 01:33] LABS: Bacteria/HPF None Seen HPF (None Seen); Bilirubin Negative (Negative); Blood, Urine Negative (Negative); CAUTI Indications for Culture Pelvic or flank pain; Clarity Clear (Clear); Glucose, Urine (Dipstick) Normal (Negative); Ketone, Urine Negative (Negative); Leukocyte Negative Leu/uL (Negative); Nitrite Negative (Negative); Protein, Urine (Dipstick) Negative (Neg-Trace); RBC/HPF 0-3 HPF (0-3); Specific Gravity, Urine 1.008 (1.002-1.036); Squamous Epithelial None Seen HPF (0-3); Urobilinogen Normal mg/dL (Less than 2); WBC/HPF None Seen HPF (0-3)
[2024-07-09 01:37] LABS: Urine Culture Reflex No No
[2024-07-09] MEDS ORDERED: Ondansetron PF 4 MG/2 ML Vial IVP PRN (02:18)
[2024-07-09] MEDS: Aspirin Chewable 81 MG TAB PO SCH (03:03)
[2024-07-09 04:55] LABS: #Basophils 0.03 10x3/uL (0.0-0.2); %Basophils 0.5 % (0.0-1.0); %Eosinophils 4.1 % (0.0-10.0); %Lymphocytes 35.7 % (21.0-51.0); %Monocytes 14.9 % (0.0-10.0); %Neutrophils 44.5 % (42.0-75.0); Hematocrit 42.4 % (42.0-52.0); Hemoglobin 14.5 g/dL (14.0-18.0); Mean Corpuscular HGB CONC 34.2 g/dL (32.0-36.0); Mean Corpuscular Hemoglobin 28.6 pg (27.0-31.0); Mean Corpuscular Volume 83.6 fL (78.0-98.0); Mean Platelet Volume 8.8 fL (7.4-10.4); Platelet Count 151 10x3/uL (130-400); RBC Distribution Width 13.3 % (11.5-14.5); Red Blood Cell (RBC) Count 5.07 mill/uL (4.70-6.10)
[2024-07-09 05:22] LABS: Anion Gap 11 mmol/L (10-20); BUN (Urea Nitrogen) 16 mg/dL (8.4-25.7); Calc. Creatinine Clearance 74 mL/min (70-130); Calcium 8.7 mg/dL (7.8-10.44); Carbon Dioxide 25 mmol/L (23-31); Cardiac Risk 3.2 (Less than 4.5); Chloride 103 mmol/L (98-107); Cholesterol 97 mg/dl (< 200 Desired); Estimated GFR 83; Glucose 80 mg/dL (83-110); HDL Cholesterol 30 mg/dL (>60 Neg Risk); LDL Cholesterol, Calculated 56 mg/dL; Potassium 4.1 mmol/L (3.5-5.1); Sodium 135 mmol/L (136-145); Triglycerides 54 mg/dL (Less than 150)
[2024-07-09] MEDS: Acetaminophen 325 MG TAB PO PRN (06:44)
[2024-07-09] MEDS ORDERED: Acetaminophen 325 MG TAB ONE (06:47)
[2024-07-09] MEDS ORDERED: Aspirin 81 mg Enteric Coated Tablet PO SCH (09:00)
[2024-07-09] MEDS ORDERED: Aspirin 81 mg Enteric Coated Tablet ONE (10:14)
[2024-07-09] MEDS ORDERED: Carvedilol 25 MG TAB ONE (10:14)
[2024-07-09] MEDS ORDERED: Ketorolac Tromethamine 30 MG (1 mL) VIAL ONE (10:14)
[2024-07-09] MEDS: Ketorolac Tromethamine 30 MG (1 mL) VIAL IVP PRN (10:33)
[2024-07-09] MEDS: Carvedilol 25 MG TAB PO SCH (10:33)
[2024-07-09] MEDS: Aspirin 81 mg Enteric Coated Tablet PO SCH (10:33)
[2024-07-09 16:20] VITALS: BMI 21.5
[2024-07-09] MEDS: Atorvastatin Calcium 40 MG TAB PO SCH (20:34)
[2024-07-10] MEDS ORDERED: Levothyroxine Sodium 100 MCG TAB PO SCH (06:00)
[2024-07-10] MEDS: Losartan 25 MG TAB PO SCH (07:57)
[2024-07-10] MEDS: metFORMIN 500 MG TAB PO SCH (07:57)
[2024-07-10] MEDS: hydrALAZINE 20 MG/ML VIAL SLOW IVP PRN ×2 (15:41→18:52)
[2024-07-10] MEDS: Carvedilol 6.25 MG TAB PO SCH ×2 (15:42→20:14)
[2024-07-10] MEDS: Calcium Carbonate 500 MG TAB PO SCH (15:42)
[2024-07-10] MEDS ORDERED: Meclizine HCl 12.5 MG TAB PO PRN (16:00)
[2024-07-10] MEDS ORDERED: TESTOSTERONE CYPIONATE 100 MG/ML IM SCH (16:00)
[2024-07-10] MEDS ORDERED: Non-Formulary Item 1 EACH (Tadalafil [Tadalafil] 10 MG Tablet) PO PRN (16:00)
[2024-07-10] MEDS ORDERED: POTASSIUM CHLORIDE PO SCH (17:00)
[2024-07-10] MEDS ORDERED: [UNRECOGNIZED DRUG - OTHER] PO SCH (17:00)
[2024-07-10] MEDS ORDERED: Omega-3 Acid Ethyl Esters [Lovaza] 1 GM Capsule PO SCH (17:00)
[2024-07-10] MEDS ORDERED: SODIUM CHLORIDE PO SCH (17:00)
[2024-07-10] MEDS ORDERED: SODIUM BICARBONATE PO SCH (17:00)
[2024-07-10] MEDS ORDERED: tiZANidine HCl 4 MG TAB PO PRN (17:06)
[2024-07-10] MEDS ORDERED: Melatonin 3 MG TAB PO SCH ×2 (18:30→21:00)
[2024-07-10] MEDS: hydrALAZINE 25 MG TAB PO SCH ×2 (18:51→20:18)
[2024-07-10] MEDS: Pancrelipase DR 12,000 1 CAP PO SCH (18:52)
[2024-07-10] MEDS: Dicyclomine 20 MG TAB PO SCH (18:53)
[2024-07-10] MEDS: traMADol HCl 50 MG TAB PO SCH ×2 (18:53→20:18)
[2024-07-10] MEDS: Mometasone 200 MCG/Formoterol 5 MCG 120 PUFF INHALER INH SCH (20:02)
[2024-07-10] MEDS: Melatonin 3 MG TAB PO SCH (20:13)
[2024-07-10] MEDS: diphenhydrAMINE 25 MG CAP PO SCH (20:13)
[2024-07-10] MEDS: Naproxen 500 MG TAB PO SCH (20:14)
[2024-07-10] MEDS: Acetaminophen 325 MG TAB PO SCH (20:18)
[2024-07-11 04:55] LABS: Anion Gap 14 mmol/L (10-20); BUN (Urea Nitrogen) 14 mg/dL (8.4-25.7); Calc. Creatinine Clearance 68 mL/min (70-130); Calcium 8.5 mg/dL (7.8-10.44); Carbon Dioxide 23 mmol/L (23-31); Chloride 98 mmol/L (98-107); Estimated GFR 91; Glucose 82 mg/dL (83-110); Potassium 3.3 mmol/L (3.5-5.1); Sodium 132 mmol/L (136-145)
[2024-07-11] MEDS: Levothyroxine 175 MCG TAB PO SCH (05:08)
[2024-07-11 05:10] LABS: Free T4 (Free Thyroxine) 1.15 ng/dL (0.70-1.48)
[2024-07-11] MEDS: metFORMIN 500 MG TAB PO SCH (07:45)
[2024-07-11] MEDS: Rosuvastatin 5 MG TAB PO SCH (07:45)
[2024-07-11] MEDS: Cyanocobalamin (Vitamin B-12) 1,000 MCG TAB PO SCH (07:46)
[2024-07-11] MEDS: Pantoprazole 40 MG DR.TAB PO SCH (07:46)
[2024-07-11] MEDS: hydrALAZINE 25 MG TAB PO SCH ×2 (08:50→08:54)
[2024-07-11] MEDS: Potassium Chloride 20 MEQ TAB PO SCH (08:50)
[2024-07-11] MEDS ORDERED: hydrALAZINE 25 MG TAB PO SCH ×2 (09:00→14:00)
[2024-07-11] MEDS: Calcitriol 0.25 MCG CAP PO SCH (12:01)
[2024-07-11] MEDS: Magnesium Oxide 250 MG TAB PO SCH (12:01)
[2024-07-11] MEDS: Ketorolac Tromethamine 30 MG (1 mL) VIAL IVP SCH (12:02)
[2024-07-11] MEDS: traMADol HCl 50 MG TAB PO SCH (12:07)
[2024-07-11 12:10] VITALS: TEMP 97.9
[2024-07-11 13:49] VITALS: BP 177/77
== END 2024-07-11 15:30 | disposition home or self-care (01) | DRG 69 ==
LOC: ERS 23:27 → ERHOLD 07-09 02:50 → 2SE 07-09 02:51 → OBSVTOIN 07-09 17:54
PROVIDERS: ADMIT Student in an Organized Health Care Education/Training Program; ATTEND Internal Medicine
DX: G45.9 Transient cerebral ischemic attack, unspecified (principal); E11.9 Type 2 diabetes mellitus without complications; I25.10 Atherosclerotic heart disease of native coronary artery without angina pectoris; Z95.1 Presence of aortocoronary bypass graft; I10 Essential (primary) hypertension; E78.5 Hyperlipidemia, unspecified; E03.9 Hypothyroidism, unspecified
CPT/HCPCS: 36415; 36416; 70450; 70551; 71045; 80048; 80053; 80061; 81001; 83690; 83880; 84439; 84443; 84481; 84484; 85025; 85610; 85730; 93005; 93306; 93880; 94760; 96360; 96361; 96374; 96375; G0378; J0360; J0780; J1885